=== PATIENT | female | born 1995 | race American Indian/Alaskan Native ===

== ENCOUNTER 2017-11-08 04:36 | Emergency (ER) | payer BC ==
[2017-11-08] MEDS ORDERED: PERCOCET 5/325 PO ONE (07:57)
[2017-11-08] MEDS ORDERED: XYLOCAINE 1% MPF 5 mL INFILTRATI ONE (07:57)
--- NOTE | 2017-11-08 07:57 | Emergency Department Report ---
Abscess Boil HPI - HPI Chief Complaint: Skin/Abscess/Foreign Body Stated Complaint: LT UPPER THIGH SORE Time Seen by Provider: 11/08/17 07:27 Duration: >1 Week (2 weeks) Location: Other (buttocks) Severity: Severe (01/22) History: Yes Pain, No Fever, No Purulent Drainage (buttocks around abscess), No Numbness, No Foreign Body, No Previous History, No Insect Bite HPI: This is a 22-year-old female patient who presented to the emergency room complaining of abscess to her left buttocks 2 weeks. She says she has never had episode like this before and is painful at 10 out of 10. Worse with sitting and walking around. No drainage noted and tetanus vaccines up-to-date pain is sore and sometimes throbbing. Home Medications: Previous Rx's Medication Instructions Recorded Last Taken Type Butalb/Acetamin/Caff 50-325-40 1 each PO Q6H PRN #16 tablet 01/04/14 Unknown Rx [Fioricet] Ibuprofen [Motrin 600 MG tab] 600 mg PO Q8H PRN #15 tablet 11/08/17 Unknown Rx Sulfamethoxazole/Trimethoprim 1 each PO BID 10 Days #20 tablet 11/08/17 Unknown Rx [Bactrim DS TAB] Allergies/Adverse Reactions: Allergies Allergy/AdvReac Type Severity Reaction Status Date / Time No Known Allergies Allergy Verified 01/04/14 22:21 ED Review of Systems ROS: Stated complaint: LT UPPER THIGH SORE Other details as noted in HPI Constitutional: denies: chills, fever Respiratory: denies: cough, shortness of breath, SOB with exertion, SOB at rest , stridor, wheezing Cardiovascular: denies: chest pain, palpitations, edema, syncope Gastrointestinal: denies: nausea, vomiting, diarrhea Genitourinary: denies: urgency, dysuria, discharge Musculoskeletal: denies: back pain, joint swelling, arthralgia Skin: other (buttocks abscess). denies: rash, lesions Neurological: denies: headache, weakness ED Past Medical Hx - Past Medical History Previous Medical History?: No - Surgical History Past Surgical History?: Yes Additional Surgical History: hernia repair - Family History Family history: hypertension - Social History Smoking Status: Never Smoker Substance Use Type: None - Medications Home Medications: Home Medications Medication Instructions Recorded Confirmed Last Taken Type Butalb/Acetamin/Caff 50-325-40 1 each PO Q6H PRN #16 tablet 01/04/14 Unknown Rx [Fioricet] Ibuprofen [Motrin 600 MG tab] 600 mg PO Q8H PRN #15 tablet 11/08/17 Unknown Rx Sulfamethoxazole/Trimethoprim 1 each PO BID 10 Days #20 tablet 11/08/17 Unknown Rx [Bactrim DS TAB] ED Abscess Boil Physical Exam - Exam General: Vital signs noted. No distress. Alert and acting appropriately. 22-year-old female well-nourished well-developed in no acute distress. Front/Back of Body, Lg (Color): 1 - Recently 2 cm indurated, erythema, fluctuant area to left inner buttocks. Tender to palpate. Size: 2 cm Exam: Yes Tenderness, Yes Fluctuance, Yes Surrounding Cellulites/Erythema, Yes Normal Neurologic Exam (alert and oriented 3, normal gait), Yes Normal Circulation (No cce. + 2 pulses in all extremities, no neurovascular compromise) , No Lymphangitis, No Crepitation, No Heart Murmur (S1, S2) Exam: Mouth: Normal exam, moist, no pharyngeal exudate or erythema. Tongue is normal and uvula is midline. Lungs: Clear to auscultation bilaterally, no rhonchi wheezes or I & D Note - I & D Note I & D Note: Incision and drainage to abscess: Left buttocks 2 cm abscess cleansed with iodine, followed by normal saline. Under sterile procedure 3 mL of 1% lidocaine without epi injected site. #11 blade scalpel used to make less than 25 cm incision to abscess. Large amount of serosanguineous drainage or any odor drainage from site. Area packed with iodoform dressing. Cleanse it iodine and saline and sterile dry just simply subside. Tetanus vaccine update . ED Course Vital Signs 11/08/17 11/08/17 04:36 04:40 Temperature 99.3 F 99.3 F Pulse Rate 99 H 99 H Respiratory 150 H 16 Rate Blood Pressure 131/85 Blood Pressure 131/85 [Right] O2 Sat by Pulse 99 99 Oximetry - Reevaluation(s) Reevaluation #1: 11/08/17 09:09 She given Percocet 5/325 2 tablets by mouth and posterior 0.5 mL IM in the emergency room. Her pain has been relief. Please see procedure notes an incision and drainage. Pain has been relieved after incision and drainage Critical care attestation.: If time is entered above; I have spent that time in minutes in the direct care of this critically ill patient, excluding procedure time. ED Medical Decision Making - Medical Decision Making This is a 22-year-old female here reports that she has abscess between her butt cheeks for 2 weeks. She states that this painful and painful walking and sitting down. She is here to be treated She was seen and examined by myself. She was found to have 2 cm indurated, fluctuant erythema area between her buttocks and left lateral buttocks. Tender to palpate. Incision and drainage procedure done under sterile procedure. See procedure note for details. Patient felt better after pain medication and incident drainage done. Patient was informed to remove pack in and 4 days or she can return to the emergency room to have packing removed. She voices understanding of her diagnosis and treatment plan . Simple abscess -incision and drained. Please refer to procedure note for details. She will be placed on Bactrim DS and Motrin for pain. Tetanus vaccine booster 0.5 mL given in emergency room. Discharge instruction given on wound care, medication, treatment plan, acute wound care and need to follow-up. Discharged home in stable condition with prescription for Bactrim and Motrin. Vital signs are stable she is afebrile and her pain is better. Patient knows that she has to follow up with her primary care and 3-4 days and/or return to the emergency room to have packing removed and she voiced understanding. ED Disposition Clinical Impression: Abscess of buttock, left, Encounter for incision and drainage procedure Disposition: TO HOME OR SELFCARE Is pt being admited?: No Does the pt Need Aspirin: No Condition: Stable Instructions: Abscess Incision and Drainage (ED), Cellulitis (ED) Additional Instructions: Please return to emergency room in 4 days to have packing removed from pubic region. Please take sitz baths and apply warm compresses to right pubic area 3-4 times a day and sitz baths to left buttocks to help to soften cellulitic area. take Motrin as prescribed Take Bactrim DS as instructed If area of cellulitis worsens, increase in pain and increase in swelling please return to the emergency room [facility] Please keep pack in and place to area that was incision and drained until you are seen in 4 days. Referrals: PRIMARY CARE, [Primary Care Provider] - 11/11/17 [facility] [Outside] - 11/11/17 Forms: Work/School Release Form(ED)
[2017-11-08] MEDS ORDERED: BOOSTRIX IM ONE (07:58)
[2017-11-08 09:07] VITALS: BP 118/64
== END 2017-11-08 09:25 | disposition home or self-care (01) ==
LOC: ED 04:36
DX: L02.31 Cutaneous abscess of buttock (principal)
CPT/HCPCS: 90471; 90715; 99282